=== PATIENT | female | born 1970 | race Caucasian/White ===

== ENCOUNTER 2024-03-07 14:14 | Emergency (ER) | payer MEDICARE, MEDICAID ==
[~2024-03-07 14:14] MED LIST: Iopamidol 370 76% 100 ML VIAL ONE
[2024-03-07 14:43] LABS: Bilirubin Negative (Negative); Blood, Urine Negative (Negative); Clarity Clear (Clear); Glucose, Urine (Dipstick) Negative (Negative); Ketone, Urine Negative (Negative); Leukocyte Negative (Negative); Nitrite Negative (Negative); Protein, Urine (Dipstick) Negative (Neg-Trace); Urobilinogen 0.2 mg/dL (Less than 2)
[2024-03-07 14:53] LABS: Bacteria/HPF Rare-Few HPF (None Seen); CAUTI Indications for Culture Pelvic or flank pain; RBC/HPF 0-3 HPF (0-3); Squamous Epithelial 0-3 HPF (0-3); WBC/HPF 0-3 HPF (0-3)
[2024-03-07 14:54] LABS: Urine Culture Reflex No No
[2024-03-07] MEDS ORDERED: Ondansetron PF 4 MG/2 ML Vial ONE ×2 (15:16→17:59)
[2024-03-07] MEDS ORDERED: Sodium Chloride 0.9% 1,000 ML ONE ×2 (15:16→17:06)
[2024-03-07 15:37] LABS: #Lymphocytes 1.3 thou/uL (1.20-3.40); #Monocytes 0.3 thou/uL (0.11-0.59); #Neutrophils 4.6 thou/uL (1.40-6.50); %Basophils 0.5 % (0.0-1.0); %Eosinophils 0.5 % (0.0-10.0); %Lymphocytes 21.1 % (21.0-51.0); %Neutrophils 73.9 % (42.0-75.0); Hematocrit 30.1 % (36.0-47.0); Hemoglobin 9.1 g/dL (12.0-16.0); Mean Corpuscular HGB CONC 30.1 g/dL (32.0-36.0); Mean Corpuscular Hemoglobin 25.2 pg (27.0-31.0); Mean Corpuscular Volume 83.9 fl (78.0-98.0); Mean Platelet Volume 7.2 fL (7.4-10.4); Platelet Count 251 10x3/uL (130-400); RBC Distribution Width 14.7 % (11.5-14.5); Red Blood Cell (RBC) Count 3.59 mill/uL (4.20-5.40); White Blood Cell (WBC) Count 6.2 10x3/uL (4.8-10.8)
[2024-03-07 15:52] LABS: ALT (SGPT) 14 U/L (8-55); AST (SGOT) 24 U/L (5-34); Albumin 3.8 g/dL (3.5-5.0); Alkaline Phosphatase 65 U/L (40-110); Anion Gap 17 mmol/L (10-20); BUN (Urea Nitrogen) 13 mg/dL (9.8-20.1); Bilirubin, Total 0.3 mg/dL (0.2-1.2); Calc. Creatinine Clearance 0 mL/min (70-130); Calcium 8.8 mg/dL (7.8-10.44); Carbon Dioxide 20 mmol/L (22-29); Chloride 107 mmol/L (98-107); Estimated GFR 101; Globulin 2.1 g/dL (2.4-3.5); Glucose 101 mg/dL (70-105); Lipase 13 U/L (8-78); Magnesium 1.8 mg/dL (1.6-2.6); Potassium 4.6 mmol/L (3.5-5.1); Protein, Total 5.9 g/dL (6.0-8.3); Sodium 139 mmol/L (136-145); Troponin I Less than 0.010 ng/mL (< 0.028)
[2024-03-07] MEDS ORDERED: Morphine 4 MG/ML VIAL ONE (17:06)
[2024-03-07] MEDS ORDERED: Ketorolac Tromethamine 30 MG (1 mL) VIAL ONE ×2 (17:59→20:32)
== END 2024-03-07 20:42 | disposition short-term general hospital (02) ==
LOC: MADERS 14:14
DX: K56.1 Intussusception (principal); R18.8 Other ascites; I25.10 Atherosclerotic heart disease of native coronary artery without angina pectoris; I10 Essential (primary) hypertension; F17.290 Nicotine dependence, other tobacco product, uncomplicated; Z79.899 Other long term (current) drug therapy; Z79.82 Long term (current) use of aspirin
CPT/HCPCS: 74177; 80053; 81001; 83690; 83735; 83880; 84484; 85025; 93005; 96361; 96374; 96375; 96376; J1885; J2270; J2405; J7050; Q9967

== ENCOUNTER 2024-05-31 12:55 | Outpatient (CLI) | payer MEDICARE, MEDICAID | END 2024-05-31 12:56 | disposition home or self-care (01) | LOC: MADLAB 12:55 | PROVIDERS: ATTEND Nurse Practitioner Family | DX: M25.522 Pain in left elbow (principal); M25.521 Pain in right elbow ==

== ENCOUNTER 2024-09-10 14:54 | Emergency (ER) | payer MEDICARE, MEDICAID | END 2024-09-10 15:59 | disposition home or self-care (01) | LOC: MADERS 14:54 | DX: J11.1 Influenza due to unidentified influenza virus with other respiratory manifestations (principal); K12.0 Recurrent oral aphthae; I10 Essential (primary) hypertension | CPT/HCPCS: 87081; 87430; 99283 ==